=== PATIENT | female | born 1960 | race Hispanic/Latino ===

== ENCOUNTER 2017-08-29 21:50 | Emergency (ER) | payer MEDICARE, MEDICAID ==
[2017-08-29 22:12] VITALS: BP 112/72; RESP 16; TEMP 98.9
--- NOTE | 2017-08-30 00:46 | ED PDOC ---
HPI: General Adult Time Seen by Provider: 08/29/17 23:54 Chief Complaint (Nursing): Abnormal Skin Integrity Chief Complaint (Provider): Abnormal Skin Integrity History Per: Patient History/Exam Limitations: no limitations Onset/Duration Of Symptoms: Days (x1) Current Symptoms Are (Timing): Still Present Additional Complaint(s): 57 year old female presents to the emergency department complaining of yellow discharge noted today from her right breast s/p a breast reduction surgery on at [facility]. Patient states she has had one post operation evaluation and was told everything was normal, recently finishing her dose of clarithromycin. Denies fever, shortness of breath, and hemoptysis. PMD: Donnie Ribeiro Past Medical History Reviewed: Historical Data, Nursing Documentation, Vital Signs Vital Signs: Last Vital Signs Temp 98.9 F 08/29/17 22:10 Pulse 104 H 08/30/17 05:55 Resp 16 08/30/17 05:55 BP 112/72 08/29/17 22:10 Pulse Ox 99 08/30/17 05:55 - Medical History PMH: No Chronic Diseases - Surgical History Other surgeries: breast reduction 08/14/17 - Family History Family History: States: Unknown Family Hx - Home Medications Home Medications: Ambulatory Orders Medication Instructions Recorded Doxycycline Hyclate [Doryx] 100 mg PO BID #14 cap 08/30/17 Ondansetron ODT [Zofran ODT] 4 mg PO TID #10 odt 08/30/17 - Allergies Allergies/Adverse Reactions: Allergies Allergy/AdvReac Type Severity Reaction Status Date / Time codeine Allergy RASH Verified 08/29/17 22:09 Penicillins Allergy RASH Verified 08/29/17 22:09 tramadol AdvReac ANAPHYLAXIS Verified 08/29/17 22:09 Review of Systems ROS Statement: Except As Marked, All Systems Reviewed And Found Negative Constitutional: Negative for: Fever Respiratory: Negative for: Shortness of Breath, Hemoptysis Skin: Positive for: Other (yellow discharge from right breast surgical wound) Physical Exam - Reviewed Nursing Documentation Reviewed: Yes Vital Signs Reviewed: Yes - Physical Exam Appears: Positive for: No Acute Distress Head Exam: Positive for: ATRAUMATIC, NORMOCEPHALIC Skin: Positive for: Normal Color, Warm, Dry Eye Exam: Positive for: Normal appearance Cardiovascular/Chest: Positive for: Regular Rate, Rhythm, Other (left breast healing wound: minimal surrounding erythema to wound with no drainage; Right breast healing wound: minimal surrounding erythema, but yellow discharge noted. No fluctuance or induration). Negative for: Murmur Respiratory: Positive for: Normal Breath Sounds. Negative for: Accessory Muscle Use, Respiratory Distress Neurologic/Psych: Positive for: Alert, Oriented (x3) - Laboratory Results Result Diagrams: 08/30/17 00:50 08/30/17 00:50 - ECG ECG: Positive for: Interpreted By Nv ECG Rhythm: Positive for: Sinus Tachycardia. Negative for: ST/T Changes Rate: 107 O2 Sat by Pulse Oximetry: 97 (RA) Pulse Ox Interpretation: Normal Medical Decision Making Medical Decision Making: Initial Impression: post op infection Time: 00:13 Initial Plan: --Rashad discussed with Dr. Guzmán who recommended blood work and IV insertion. --VBG --CMP --CBC with differential --Vancomycin --Blood Culture --Wound Culture --Chest XR 00:30 Patient reports that her plastic surgeon is [place] of the country and advised her to follow up at the ED for further evaluation. On re-evaluation, pt. states several months ago she was seen by Dr. Way, aircraft dispatcher, who prescribed her Metoprolol for an elevated heart rate. States she stopped metoprolol on her own after the surgery as she was afraid it would interact with her Clarithromycin and she has not been on metoprolol since. Denies chest pain, SOB, hemoptysis, hx of DVT or PE, leg pain or swelling. No calf tenderness b/l; negative Chinedu's sign b/l. EKG: ST at [address]-T wave changes. Case d/w Dr. Guzmán who states pt. can be discharged with oral antibiotics. Pt. informed of results and advised to f/u with PMD and Dr. Way. 4:06 Chest XR FINDINGS: Lungs: There is a 1.7 x 1.3 cm pulmonary nodule in the right lower lobe. There is a calcified nodule in the right mid lung measuring 8 mm. Pleural space: Unremarkable. No pneumothorax. Heart: Unremarkable. No cardiomegaly. Mediastinum: Unremarkable. Bones/joints: Status post cervical fusion with plate and screws noted. There is a single fractured wire overlying the superior mediastinum. IMPRESSION: Right mid and lower lobe pulmonary nodules. Recommend comparison with prior studies if available to establish stability. No focal consolidation. 4:10 Patient was informed of Chest XR findings and advised to follow up with her PMD for further evaluation of her pulmonary nodules. Scribe Attestation: Documented by Nancy St, acting as a scribe for Edilson Lujan PA-C. Provider Scribe Attestation: All medical entries made by the Scribe were at my direction and personally dictated by me. I have reviewed the chart and agree that the record accurately reflects my personal performance of the history, physical exam, medical decision making, and the department course for this patient. I have also personally directed, reviewed, and agree with the discharge instructions and disposition. Disposition - Clinical Impression Clinical Impression: Post op infection, Cough, Pulmonary nodule - Patient ED Disposition Is Patient to be Admitted: No - Disposition Referrals: Shannan Cleveland [Outside] Disposition: Routine/Home Disposition Time: 04:17 Condition: STABLE Additional Instructions: FOLLOW UP WITH DR. DECKER (YOUR PLASTIC SURGEON) WITHOUT FAIL RETURN TO ED IMMEDIATELY IF SYMPTOMS WORSEN Prescriptions: Doxycycline Hyclate [Doryx] 100 mg PO BID #14 cap Ondansetron ODT [Zofran ODT] 4 mg PO TID #10 odt Instructions: Surgical Wound (DC), Cough, Adult (DC), Multiple Pulmonary Nodules Forms: [employer] (Hebrew) Print Language: NORTHERN IRISH
[2017-08-30 01:00] LABS: VENOUS BLOOD GAS BASE EXCESS 7.6 mmol/L (0.0-2.0); VENOUS BLOOD GAS PCO2 52 mmHg (40-60); VENOUS BLOOD GAS PO2 22 mm/Hg (30-55); VENOUS BLOOD PH 7.42 (7.32-7.43)
[2017-08-30 01:15] LABS: BASO # 0.1 K/uL (0.0-0.2); BASO % 0.7 % (0.0-2.0); EOS # 0.1 K/uL (0.0-0.7); EOS % 0.6 % (0.0-4.0); HEMOGLOBIN 11.2 g/dL (12.0-16.0); LYMPH # 1.3 K/uL (1.0-4.3); LYMPH % 10.6 % (20.0-40.0); MEAN CELL VOLUME 86.9 fl (81.0-99.0); MEAN CORPUSCULAR HGB CONC 34.6 g/dL (33.0-37.0); MEAN PLATELET VOLUME 8.6 fl (7.2-11.7); MONO # 1.1 K/uL (0.0-0.8); MONO % 8.7 % (0.0-10.0); NEUT # 9.9 K/uL (1.8-7.0); NEUT % 79.4 % (50.0-75.0); RBC 3.73 Mil/uL (3.80-5.20); RED CELL DISTRIBUTION WIDTH 13.3 % (11.5-14.5); WHITE BLOOD COUNT 12.4 K/uL (4.8-10.8)
[2017-08-30 01:21] LABS: CALCIUM 9.1 mg/dL (8.4-10.2); GFR AFRICAN-AMERICAN > 60; GFR NON-AFRICAN AMERICAN > 60
[2017-08-30 01:25] LABS: BLOOD UREA NITROGEN 13 mg/dl (7-17)
[2017-08-30 01:26] LABS: ALB/GLOB RATIO 0.9 (1.0-2.1); ALBUMIN 3.6 g/dL (3.5-5.0); ALT/SGPT 18 U/L (9-52); AST/SGOT 44 U/L (14-36)
--- NOTE | 2017-08-30 04:06 | RAD ---
EXAM: XR Chest, 2 Views CLINICAL HISTORY: 57 years old, female; Signs and symptoms; Cough; Symptoms not specified; Prior surgery; Surgery date: 1-6 months; Surgery type: Breast reduction. Pt states infection/inflammation on breasts. Rt breast pain TECHNIQUE: Frontal and lateral views of the chest. COMPARISON: No relevant prior studies available. FINDINGS: Lungs: There is a 1.7 x 1.3 cm pulmonary nodule in the right lower lobe. There is a calcified nodule in the right mid lung measuring 8 mm. Pleural space: Unremarkable. No pneumothorax. Heart: Unremarkable. No cardiomegaly. Mediastinum: Unremarkable. Bones/joints: Status post cervical fusion with plate and screws noted. There is a single fractured wire overlying the superior mediastinum. IMPRESSION: Right mid and lower lobe pulmonary nodules. Recommend comparison with prior studies if available to establish stability. No focal consolidation.
[2017-08-30 06:16] VITALS: PULSE 107; O2SAT 97
--- NOTE | 2017-08-30 14:41 | CARD ---
APPROVED REPORT EKG Measurement Heart [id number] <Conclusion> Sinus tachycardia Low voltage QRS Incomplete right bundle branch block Borderline ECG
== END 2017-08-30 04:20 | disposition home or self-care (01) ==
LOC: H.ER 21:50
DX: T81.4XXA Infection following a procedure, initial encounter (principal); Z98.890 Other specified postprocedural states; R91.1 Solitary pulmonary nodule; Z88.0 Allergy status to penicillin

== ENCOUNTER 2018-02-28 15:46 | Emergency (ER) | payer MEDICAID, MEDICARE ==
[2018-02-28 16:07] VITALS: RESP 18
[2018-02-28] MEDS ORDERED: Morphine 4 MG/ML VIAL IV STA (16:57)
[2018-02-28] MEDS ORDERED: Morphine 4 MG/ML VIAL IM STA (17:01)
[2018-02-28] MEDS ORDERED: Morphine 4 MG/ML VIAL ONE (17:03)
--- NOTE | 2018-02-28 17:26 | ED PDOC ---
Upper Extremity Pain/Injury Time Seen by Provider: 02/28/18 16:28 Chief Complaint (Nursing): Upper Extremity Problem/Injury Chief Complaint (Provider): Upper Extremity Problem/Injury History Per: Patient History/Exam Limitations: no limitations Onset/Duration Of Symptoms: Days (x1) Current Symptoms Are (Timing): Still Present Additional Complaint(s): Noemi Gibson is a 58 year old female with no past medical history who is presenting to the ED for evaluation of left shoulder pain onset last night. Patient states that she tripped and fell hitting her left shoulder in the process. She reports that she cant move her arm and denies any numbness, tingling, head injury, or weakness. Patient offers no other medical complaints at this time. PMD: none provided Past Medical History Reviewed: Historical Data, Nursing Documentation, Vital Signs Vital Signs: Last Vital Signs Temp 97.8 F 02/28/18 16:05 Pulse 86 02/28/18 16:05 Resp 18 02/28/18 16:05 BP 164/67 H 02/28/18 16:05 Pulse Ox 100 02/28/18 16:05 - Medical History PMH: No Chronic Diseases - Surgical History Surgical History: No Surg Hx - Family History Family History: States: Unknown Family Hx - Social History Current smoker - smoking cessation education provided: No Alcohol: None Drugs: Denies - Home Medications Home Medications: Ambulatory Orders Medication Instructions Recorded Doxycycline Hyclate [Doryx] 100 mg PO BID #14 cap 08/30/17 Ondansetron ODT [Zofran ODT] 4 mg PO TID #10 odt 08/30/17 - Allergies Allergies/Adverse Reactions: Allergies Allergy/AdvReac Type Severity Reaction Status Date / Time acetaminophen [From Percocet] Allergy RASH Verified 02/28/18 16:02 codeine Allergy RASH Verified 08/29/17 22:09 gabapentin Allergy RASH Verified 02/28/18 16:04 oxycodone [From Percocet] Allergy RASH Verified 02/28/18 16:02 Penicillins Allergy RASH Verified 08/29/17 22:09 lidocaine AdvReac ANAPHYLAXIS Verified 02/28/18 16:02 tramadol AdvReac ANAPHYLAXIS Verified 08/29/17 22:09 Review of Systems ROS Statement: Except As Marked, All Systems Reviewed And Found Negative Musculoskeletal: Positive for: Shoulder Pain Neurological: Negative for: Weakness, Numbness Physical Exam - Reviewed Nursing Documentation Reviewed: Yes Vital Signs Reviewed: Yes - Physical Exam Appears: Positive for: Non-toxic, No Acute Distress Head Exam: Positive for: ATRAUMATIC, NORMAL INSPECTION, NORMOCEPHALIC Skin: Positive for: Normal Color Neck: Positive for: Normal, Painless ROM, Supple Back: Positive for: Normal Inspection Extremity: Positive for: Normal ROM (decreased ROM secondary to pain), Tenderness (tenderness of the clavicle and anterior left scapula ). Negative for: Deformity (no bony deformity), Swelling, Other (no echymosis or erythema ) Neurologic/Psych: Positive for: Alert, Oriented. Negative for: Motor/Sensory Deficits - ECG O2 Sat by Pulse Oximetry: 100 (RA) Pulse Ox Interpretation: Normal Medical Decision Making Medical Decision Making: Time: 16:44 Plan: --X-Ray Left Shoulder Morphine 4mg IM for pain. Pt. has taken in the past without issues. Scribe Attestation: Documented by Asia Zarate, acting as a scribe for Melissa Coulter PA-C. Provider Scribe Attestation: All medical record entries made by the Scribe were at my direction and personally dictated by me. I have reviewed the chart and agree that the record accurately reflects my personal performance of the history, physical exam, medical decision making, and the department course for this patient. I have also personally directed, reviewed, and agree with the discharge instructions and disposition. Disposition - Clinical Impression Clinical Impression: Shoulder injury - Patient ED Disposition Is Patient to be Admitted: No Counseled Patient/Family Regarding: Diagnosis, Need For Followup - Disposition Disposition: Routine/Home Disposition Time: 18:09 Condition: GOOD Instructions: Shoulder Pain (DC) Forms: [employer] (Brazilian)
--- NOTE | 2018-02-28 17:58 | RAD ---
Date of service: 02/28/2018 PROCEDURE: Radiographs of the Left Shoulder HISTORY: pain, fall COMPARISON: No prior. FINDINGS: BONES: Normal. No fracture. JOINTS: Normal. Glenohumeral and acromioclavicular joints preserved. No osteoarthritis. SOFT TISSUES: Normal. OTHER FINDINGS: None. IMPRESSION: Normal radiographs of the left shoulder.
[2018-02-28 18:16] VITALS: BP 122/81; PULSE 76; TEMP 98; O2SAT 99
== END 2018-02-28 18:15 | disposition home or self-care (01) ==
LOC: H.ER 15:46
DX: S49.92XA Unspecified injury of left shoulder and upper arm, initial encounter (principal); Z88.5 Allergy status to narcotic agent; W01.10XA Fall on same level from slipping, tripping and stumbling with subsequent striking against unspecified object, initial encounter
CPT/HCPCS: 73030; 96372; 99283; J2270

== ENCOUNTER 2018-06-17 16:32 | Inpatient (IN) | payer MEDICARE, MEDICAID ==
[2018-06-17] MEDS ORDERED: Albuterol-Ipratrop 3 mg / 0.5 (3 ml) UD ONE ×2 (17:13→19:10)
[2018-06-17] MEDS ORDERED: Albuterol-Ipratrop 3 mg / 0.5 (3 ml) UD INH STA ×3 (17:34→18:59)
--- NOTE | 2018-06-17 17:36 | ED PDOC ---
HPI: Asthma Time Seen by Provider: 06/17/18 17:12 Chief Complaint (Nursing): Cough, Cold, Congestion Chief Complaint (Provider): Shortness of Breath, Cough History Per: Patient History/Exam Limitations: no limitations Onset/Duration Of Symptoms: Hrs (since 0130 this morning) Current Symptoms Are (Timing): Still Present Additional Complaint(s): 58 year old female with pmhx of asthma presents to the ED for evaluation of shortness of breath unrelieved by at home nebulizer treatment associated with cough productive of yellow sputum and intermittent hot flashes / chills since 0130 this morning. Patient notes her last asthma exacerbation was one year ago. Otherwise, denies fever and chest pain. PMD: Donnie Ribeiro Past Medical History Reviewed: Historical Data, Nursing Documentation, Vital Signs Vital Signs: Last Vital Signs Temp 98.6 F 06/17/18 16:55 Pulse 99 H 06/17/18 16:55 Resp 16 06/17/18 16:55 BP 114/60 06/17/18 16:55 Pulse Ox 95 06/17/18 16:55 - Medical History PMH: Asthma - Surgical History Surgical History: No Surg Hx - Family History Family History: States: Unknown Family Hx - Social History Current smoker - smoking cessation education provided: No Alcohol: None Drugs: Denies - Home Medications Home Medications: Ambulatory Orders Medication Instructions Recorded Doxycycline Hyclate [Doryx] 100 mg PO BID #14 cap 08/30/17 Ondansetron ODT [Zofran ODT] 4 mg PO TID #10 odt 08/30/17 - Allergies Allergies/Adverse Reactions: Allergies Allergy/AdvReac Type Severity Reaction Status Date / Time acetaminophen [From Percocet] Allergy RASH Verified 06/17/18 16:55 codeine Allergy RASH Verified 06/17/18 16:55 gabapentin Allergy RASH Verified 06/17/18 16:55 oxycodone [From Percocet] Allergy RASH Verified 06/17/18 16:55 Penicillins Allergy RASH Verified 06/17/18 16:55 lidocaine AdvReac ANAPHYLAXIS Verified 06/17/18 16:55 tramadol AdvReac ANAPHYLAXIS Verified 06/17/18 16:55 Review of Systems ROS Statement: Except As Marked, All Systems Reviewed And Found Negative Constitutional: Positive for: Chills (and hot flashes intermittently). Negative for: Fever Cardiovascular: Negative for: Chest Pain Respiratory: Positive for: Cough, Shortness of Breath, Sputum (yellow) Physical Exam - Reviewed Nursing Documentation Reviewed: Yes Vital Signs Reviewed: Yes - Physical Exam Appears: Positive for: No Acute Distress Head Exam: Positive for: ATRAUMATIC, NORMOCEPHALIC Skin: Positive for: Normal Color, Warm, Dry. Negative for: Rash Eye Exam: Positive for: Normal appearance ENT: Positive for: Normal ENT Inspection Neck: Positive for: Normal, Painless ROM, Supple Cardiovascular/Chest: Positive for: Tachycardia (but regular rhythm) Respiratory: Positive for: Wheezing (bilateral), Other (speaking full sentences). Negative for: Respiratory Distress Gastrointestinal/Abdominal: Positive for: Normal Exam, Soft. Negative for: Tenderness Back: Positive for: Normal Inspection Extremity: Positive for: Normal ROM (all extremities) Neurological/Psych: Positive for: Awake, Alert, Oriented (x3). Negative for: Motor/Sensory Deficits - Laboratory Results Result Diagrams: 06/17/18 17:58 06/17/18 17:58 - ECG O2 Sat by Pulse Oximetry: 95 (RA) Pulse Ox Interpretation: Normal - Radiology X-Ray: Interpreted by Tn X-Ray Interpretation: No Acute Disease, Other (Pulmonary nodules (unchanged from 08/30/17)) - Progress Re-evaluation Time: 18:50 Condition: Unchanged Medical Decision Making Medical Decision Making: Time: 1732 Initial Impression: asthma exacerbation Initial Plan: --EKG --CMP --CBC with differential --CXR --Duoneb 3ml INH x2 --SOLU-medrol 125mg IVP --Blood culture --Peak flow pre/post x2 --Reevaluation 19:[address] Emanuel, admit. Scribe Attestation: Documented by Nancy St, acting as a scribe for Aissatou Siegel MD. Provider Scribe Attestation: All medical record entries made by the Scribe were at my direction and personally dictated by me. I have reviewed the chart and agree that the record accurately reflects my personal performance of the history, physical exam, medical decision making, and the department course for this patient. I have also personally directed, reviewed, and agree with the discharge instructions and disposition. Disposition - Clinical Impression Clinical Impression: Asthma exacerbation - Patient ED Disposition Is Patient to be Admitted: Yes - Disposition Disposition Time: 19:00 Condition: STABLE Forms: [employer] ([place] Rican) - Pt Status Changed To: Hospital Disposition Of: Inpatient - Admit Certification Admit to Inpatient:: After my assessment, the patient will require hospitalization for at least two midnights. This is because of the severity of symptoms shown, intensity of services needed, and/or the medical risk in this patient being treated as an outpatient. - POA Present On Arrival: None
[2018-06-17 18:16] LABS: BASO % 0.2 % (0.0-2.0); EOS % 0.5 % (0.0-4.0); HEMOGLOBIN 14.8 g/dL (12.0-16.0); LYMPH # 1.1 K/uL (1.0-4.3); LYMPH % 18.6 % (20.0-40.0); MEAN CELL VOLUME 90.8 fl (81.0-99.0); MEAN CORPUSCULAR HEMOGLOBIN 29.9 pg (27.0-31.0); MEAN CORPUSCULAR HGB CONC 32.9 g/dL (33.0-37.0); MEAN PLATELET VOLUME 8.3 fl (7.2-11.7); MONO # 0.8 K/uL (0.0-0.8); MONO % 13.9 % (0.0-10.0); NEUT # 3.8 K/uL (1.8-7.0); NEUT % 66.8 % (50.0-75.0); NRBC % 0.3 % (0.0-0.0); RBC 4.94 Mil/uL (3.80-5.20); RED CELL DISTRIBUTION WIDTH 13.8 % (11.5-14.5); WHITE BLOOD COUNT 5.7 K/uL (4.8-10.8)
[2018-06-17 18:24] LABS: ALB/GLOB RATIO 1.2 (1.0-2.1); ALBUMIN 4.1 g/dL (3.5-5.0); ALT/SGPT 26 U/L (9-52); AST/SGOT 30 U/L (14-36); BLOOD UREA NITROGEN 13 mg/dl (7-17); CALCIUM 9.5 mg/dL (8.4-10.2); GFR NON-AFRICAN AMERICAN > 60
[2018-06-17] MEDS ORDERED: Azithromycin 500 MG in Sodium Chloride 0.9% 250 ML IV STA (18:57)
[2018-06-17] MEDS ORDERED: Azithromycin 500 MG IV IVPB ONE (19:03)
[2018-06-18 06:13] LABS: HEMOGLOBIN 13.7 g/dL (12.0-16.0); MEAN CORPUSCULAR HEMOGLOBIN 29.8 pg (27.0-31.0); MEAN CORPUSCULAR HGB CONC 33.9 g/dL (33.0-37.0); RBC 4.61 Mil/uL (3.80-5.20); RED CELL DISTRIBUTION WIDTH 13.4 % (11.5-14.5); WHITE BLOOD COUNT 5.4 K/uL (4.8-10.8)
[2018-06-18 06:18] LABS: ALB/GLOB RATIO 1.2 (1.0-2.1); ALBUMIN 4.2 g/dL (3.5-5.0); ALT/SGPT 24 U/L (9-52); AST/SGOT 26 U/L (14-36); BLOOD UREA NITROGEN 15 mg/dl (7-17); CALCIUM 9.7 mg/dL (8.4-10.2); GFR NON-AFRICAN AMERICAN > 60; HDL CHOLESTEROL 80 MG/DL (30-70)
[2018-06-18 06:29] LABS: LDL CHOLESTEROL 78 mg/dL (0-129)
[2018-06-18] MEDS: Albuterol-Ipratrop 3 mg / 0.5 (3 ml) UD INH SCH ×6 (08:17→23:57)
[2018-06-18] MEDS: Azithromycin 500 MG in Sodium Chloride 0.9% 250 ML IVPB SCH (08:38)
[2018-06-18] MEDS: Cholecalciferol 1,000 INTLU TAB PO SCH (08:38)
[2018-06-18] MEDS ORDERED: DICLOFENAC SODIUM 1% TOP SCH (09:00)
[2018-06-18] MEDS ORDERED: Promethazine DM 6.25 mg-15 mg/5 ml Syrup PO PRN (11:09)
--- NOTE | 2018-06-18 11:15 | CARD ---
APPROVED REPORT Date of service: 06/17/2018 EKG Measurement Heart [id number] CO 140P [id number] <Conclusion> Sinus tachycardia Incomplete right bundle branch block T wave abnormality, consider lateral ischemia Abnormal ECG
--- NOTE | 2018-06-18 11:30 | RAD ---
Date of service: 06/17/2018 HISTORY: SOB COMPARISON: 08/30/2017. FINDINGS: LUNGS: Calcified granulomas, pulmonary nodules right lung. PLEURA: No significant pleural effusion identified, no pneumothorax apparent. CARDIOVASCULAR: No atherosclerotic calcification present Normal. OSSEOUS STRUCTURES: No significant abnormalities. Stable findings related to ACDF. VISUALIZED UPPER ABDOMEN: Normal. OTHER FINDINGS: None. IMPRESSION: No active disease. No significant interval change compared to the prior examination(s).
[2018-06-18 11:35] LABS: SQUAMOUS EPITHIAL < 1 /hpf (0-5); URINE BACTERIA RARE (<OCC); URINE BILIRUBIN NEGATIVE (NEGATIVE); URINE BLOOD NEGATIVE (NEGATIVE); URINE CLARITY CLEAR (Clear); URINE COLOR YELLOW (YELLOW); URINE GLUCOSE (UA) NEG (NEGATIVE); URINE HYALINE CAST 0-2 /hpf (0-2); URINE LEUKOCYTE ESTERASE NEG Leu/uL (Negative); URINE PROTEIN NEGATIVE (NEGATIVE); URINE UROBILINOGEN 0.2-1.0 mg/dL (0.2-1.0)
[2018-06-18] MEDS: Pantoprazole 40 mg EC Tab PO SCH ×2 (12:09→12:16)
[2018-06-18] MEDS: MethylPREDNISolone 40 mg Vial IVP SCH ×3 (12:10→21:16)
--- NOTE | 2018-06-18 14:57 | CP.PCM.HP ---
History of Present Illness - History of Present Illness History of Present Illness: CC: SOB. 58 y/o F with Hx Asthma with 1st onset 1 yr ago, HTN, Breast reduction, Pt came to [facility] [place] on 06/17/18 to be evaluated for acute onset of Asthma attack, that began at 3 AM DOA, Pt was advised by her PMD to come to hospital for further evaluation, SOB associated to cough, intermittent with small amount of thick yellowish phlegms, wheezing, nasal congestion, Pt using Nebulizer Tx, Ventolin with some relief. Worsening symptoms: Ribs pain with coughing. Aggravated factor: Walking/exercise. Pt denied: Fever, chills, CP, palpitations, syncope, dizziness, n/v/d, abdominal pain, sick contact, recent travel out of [facility] CXR: No active disease. EKG: Sinus tachycardia, incomplete R BBB, lateral ischenia. Present on Admission - Present on Admission Any Indicators Present on Admission: No Review of Systems - Constitutional Constitutional: Other (negative) - EENT Ears: Decreased Hearing (R ear) Nose/Mouth/Throat: Nasal Congestion - Cardiovascular Cardiovascular: Rapid Heart Rate - Respiratory Respiratory: Cough, Dyspnea, Dyspnea on Exertion, Wheezing, Pain with Coughing - Gastrointestinal Gastrointestinal: Other (negative) - Genitourinary Genitourinary: Other (negative) - Musculoskeletal Musculoskeletal: Other (negative) - Integumentary Integumentary: Other (Ribs pain when coughing) - Neurological Neurological: Other (neg) - Psychiatric Psychiatric: Other (negative) - Endocrine Endocrine: Other (negative) - Hematologic/Lymphatic Hematologic: Other (negtaive) Past Patient History - Past Medical History & Family History Past Medical History?: Yes Pertinent Family History: Unknown - Past Social History Smoking Status: Never Smoked Alcohol: None Drugs: Denies Home Situation {Lives}: With Family - CARDIAC Hx Cardiac Disorders: Yes Hx Hypertension: Yes Other/Comment: "elevated heart rate" - PULMONARY Hx Respiratory Disorders: Yes (asthma) Hx Asthma: Yes - NEUROLOGICAL Hx Neurological Disorder: No - HEENT Hx HEENT Problems: No - RENAL Hx Chronic Kidney Disease: No - ENDOCRINE/METABOLIC Hx Endocrine Disorders: No - HEMATOLOGICAL/ONCOLOGICAL Hx Blood Disorders: No - INTEGUMENTARY Hx Dermatological Problems: No - MUSCULOSKELETAL/RHEUMATOLOGICAL Hx Musculoskeletal Disorders: No Hx Falls: No - GASTROINTESTINAL Hx Gastrointestinal Disorders: No - GENITOURINARY/GYNECOLOGICAL Hx Genitourinary Disorders: No - PSYCHIATRIC Hx Psychophysiologic Disorder: No Hx Substance Use: No - SURGICAL HISTORY Hx Surgeries: Yes Other/Comment: breast reduction - ANESTHESIA Hx Anesthesia: Yes Hx Anesthesia Reactions: No Hx Malignant Hyperthermia: No Has any member of the family had a problem w/ anesthesia?: No Meds Allergies/Adverse Reactions: Allergies Allergy/AdvReac Type Severity Reaction Status Date / Time acetaminophen [From Percocet] Allergy RASH Verified 06/17/18 16:55 codeine Allergy RASH Verified 06/17/18 16:55 gabapentin Allergy RASH Verified 06/17/18 16:55 oxycodone [From Percocet] Allergy RASH Verified 06/17/18 16:55 Penicillins Allergy RASH Verified 06/17/18 16:55 lidocaine AdvReac ANAPHYLAXIS Verified 06/17/18 16:55 tramadol AdvReac ANAPHYLAXIS Verified 06/17/18 16:55 Physical Exam - Constitutional Appears: No Acute Distress - Head Exam Head Exam: NORMAL INSPECTION - Eye Exam Eye Exam: PERRL - ENT Exam ENT Exam: Normal Exam Additional comments: Hard of hearing on R, Nasal congestion - Neck Exam Neck exam: Positive for: Normal Inspection - Respiratory Exam Respiratory Exam: Wheezes - Cardiovascular Exam Cardiovascular Exam: REGULAR RHYTHM - GI/Abdominal Exam GI & Abdominal Exam: Normal Bowel Sounds, Soft - Extremities Exam Extremities exam: Positive for: normal inspection - Back Exam Back exam: NORMAL INSPECTION - Neurological Exam Neurological exam: Alert, Oriented x3 Additional comments: No motor/sensory deficit. - Psychiatric Exam Psychiatric exam: Normal Mood - Skin Skin Exam: Warm Results - Vital Signs Recent Vital Signs: Last Vital Signs Temp 98.0 F 06/18/18 12:00 Pulse 73 06/18/18 12:00 Resp 18 06/18/18 12:00 BP 103/65 06/18/18 12:00 Pulse Ox 93 L 06/18/18 12:00 reviewed Audra - Labs Result Diagrams: 06/18/18 05:50 06/18/18 05:50 Labs: Laboratory Results - last 24 hr 06/17/18 06/17/18 06/18/18 17:58 17:58 05:50 WBC 5.7 D 5.4 RBC 4.94 4.61 Hgb 14.8 D 13.7 Hct 44.9 40.5 MCV 90.8 D 88.0 D MCH 29.9 29.8 MCHC 32.9 L 33.9 RDW 13.8 13.4 Plt Count 147 D 235 MPV 8.3 Neut % (Auto) 66.8 Lymph % (Auto) 18.6 L Oliver % (Auto) 13.9 H Eos % (Auto) 0.5 Baso % (Auto) 0.2 Neut # (Auto) 3.8 Lymph # (Auto) 1.1 Oliver # (Auto) 0.8 Eos # (Auto) 0.0 Baso # (Auto) 0.0 Sodium 136 Potassium 3.8 Chloride 101 Carbon Dioxide 24 Anion Gap 15 BUN 13 Creatinine 0.8 Est GFR ( Amer) > 60 Est GFR (Non-Af Amer) > 60 Random Glucose 104 Calcium 9.5 Total Bilirubin 0.6 AST 30 ALT 26 Alkaline Phosphatase 74 Total Protein 7.5 Albumin 4.1 Globulin 3.4 Albumin/Globulin Ratio 1.2 Triglycerides Cholesterol LDL Cholesterol Direct HDL Cholesterol Thyroxine (T4) TSH 3rd Generation Urine Color Urine Clarity Urine pH Ur Specific [place] Urine Protein Urine Glucose (UA) Urine Ketones Urine Blood Urine Nitrate Urine Bilirubin Urine Urobilinogen Ur Leukocyte Esterase Urine RBC (Auto) Urine Microscopic WBC Ur Squamous Epith Cells Urine Bacteria Hyaline Casts 06/18/18 06/18/18 05:50 11:16 WBC RBC Hgb Hct MCV MCH MCHC RDW Plt Count MPV Neut % (Auto) Lymph % (Auto) Oliver % (Auto) Eos % (Auto) Baso % (Auto) Neut # (Auto) Lymph # (Auto) Oliver # (Auto) Eos # (Auto) Baso # (Auto) Sodium 139 Potassium 4.2 Chloride 101 Carbon Dioxide 28 Anion Gap 14 BUN 15 Creatinine 0.7 Est GFR ( Amer) > 60 Est GFR (Non-Af Amer) > 60 Random Glucose 144 H Calcium 9.7 Total Bilirubin 0.3 AST 26 ALT 24 Alkaline Phosphatase 74 Total Protein 7.8 Albumin 4.2 Globulin 3.6 Albumin/Globulin Ratio 1.2 Triglycerides 62 Cholesterol 196 LDL Cholesterol Direct 78 HDL Cholesterol 80 H Thyroxine (T4) 7.00 TSH 3rd Generation 0.18 L Urine Color Yellow Urine Clarity Clear Urine pH 5.0 Ur Specific [place] 1.020 Urine Protein Negative Urine Glucose (UA) Neg Urine Ketones Negative Urine Blood Negative Urine Nitrate Negative Urine Bilirubin Negative Urine Urobilinogen 0.2-1.0 Ur Leukocyte Esterase Neg Urine RBC (Auto) < 1 Urine Microscopic WBC 3 Ur Squamous Epith Cells < 1 Urine Bacteria Rare Hyaline Casts 0-2 reviewed J.P. - EKG Data EKG comments: reviewed J.P. - Imaging and Cardiology Chest x-ray Status: Report reviewed by me (Audra) Assessment & Plan (1) Asthma exacerbation Status: Acute Priority: High (2) HTN (hypertension) Status: Chronic Priority: Medium - Assessment and Plan (Free Text) Plan: Pt on O2 NC, f/u Echo, Zithromax, Duoneb, Solu-Medrol, Mucinex DM, Mucomyst and rest of Tx. Cardiology consult. - Date & Time Date: 06/18/18 Time: 13:20
[2018-06-18] MEDS: guaiFENesin-DM 600-30 mg ER Tab PO SCH (17:19)
[2018-06-18] MEDS ORDERED: Acetylcysteine 10% 4 ML IH SCH (20:00)
--- NOTE | 2018-06-18 20:28 | CARD ---
APPROVED REPORT Date of service: 06/18/2018 EXAM: Two-dimensional and M-mode echocardiogram with Doppler and color Doppler. Other Information Quality : FairRhythm : NSR Technically limited study due to Recent Breast surgery. INDICATION Dyspnea Asthma 2D DIMENSIONS IVSd1.26 (0.7-1.1cm)LVDd3.73 (3.9-5.9cm) LVOT Diameter1.84 (1.8-2.4cm)PWd1.04 (0.7-1.1cm) IVSs1.71 (0.8-1.2cm)LVDs1.56 (2.5-4.0cm) FS (%) 58.2 %PWs1.30 (0.8-1.2cm) M-Mode DIMENSIONS Left Atrium (MM)3.45 (2.5-4.0cm)IVSd1.16 (0.7-1.1cm) Aortic Root2.84 (2.2-3.7cm)LVDd4.36 (4.0-5.6cm) Aortic Cusp Exc.1.85 (1.5-2.0cm)PWd1.38 (0.7-1.1cm) IVSs1.74 cmFS (%) 53 % LVDs2.07 (2.0-3.8cm)PWs1.60 cm Aortic Valve AoV Peak Vmpoxfgz852.7cm/sAoV VTI27.6cmAO Peak GR.8mmHg LVOT Peak Badaxsje674.3cm/sLVOT VTI20.43cmAO Mean GR.4mmHg MARJAN (VMAX)0.35gz2SGV (VTI)1.03cm2 Mitral Valve MV E Idguydbk35.9cm/sMV DECEL [id number] A Bhnslyln52.5cm/s MV ZYB40ecB/A ratio0.9MVA (PHT)2.35cm2 TDI E/Lateral E'0.0E/Medial E'0.0 Tricuspid Valve TR Peak Ncdxgsht663jg/sRAP SEXCZZBV85dzJkYJ Peak Gr.21mmHg [id number] LEFT VENTRICLE The left ventricle is normal size. There is normal left ventricular wall thickness. The left ventricular systolic function is normal. The estimated ejection fraction is 55-60% No regional wall motion abnormalities noted.. Transmitral Doppler flow pattern is Grade I-abnormal relaxation pattern. No left ventricle thrombus noted on this study. There is no ventricular septal defect visualized. There is no left ventricular aneurysm. There is no mass noted in the left ventricle. RIGHT VENTRICLE The right ventricle is normal size. There is normal right ventricular wall thickness. The right ventricular systolic function is normal. ATRIA The left atrium size is normal. The right atrium size is normal. The interatrial septum is intact with no evidence for an atrial septal defect. AORTIC VALVE The aortic valve is normal in structure. No aortic regurgitation is present. There is no aortic valvular stenosis. There is no aortic valvular vegetation. MITRAL VALVE The mitral valve is normal in structure. There is no evidence of mitral valve prolapse. There is no mitral valve stenosis. There is no mitral valve regurgitation noted. TRICUSPID VALVE The tricuspid valve is normal in structure. There is mild tricuspid valve regurgitation noted. RVSP is calculated at 26 mm Hg. There is no tricuspid valve prolapse or vegetation. There is no tricuspid valve stenosis. PULMONIC VALVE The pulmonary valve is normal in structure. There is no pulmonic valvular regurgitation. There is no pulmonic valvular stenosis. GREAT VESSELS The aortic root is normal in size. The ascending aorta is normal in size. The pulmonary artery is normal. The IVC is normal in size and collapses >50% with inspiration. PERICARDIAL EFFUSION There is no pericardial effusion. There is no pleural effusion. <Conclusion> Technically difficult study. The estimated ejection fraction is 55-60% Transmitral Doppler flow pattern is Grade I-abnormal relaxation pattern. The left atrium size is normal. There is mild tricuspid valve regurgitation noted. RVSP is calculated at 26 mm Hg.
[2018-06-19] MEDS: MethylPREDNISolone 40 mg Vial IVP SCH ×4 (03:58→21:42)
[2018-06-19] MEDS: Albuterol-Ipratrop 3 mg / 0.5 (3 ml) UD INH SCH ×5 (08:20→23:37)
[2018-06-19] MEDS: Pantoprazole 40 mg EC Tab PO SCH (10:02)
[2018-06-19] MEDS: guaiFENesin-DM 600-30 mg ER Tab PO SCH ×2 (10:02→17:45)
[2018-06-19] MEDS: Cholecalciferol 1,000 INTLU TAB PO SCH (10:12)
[2018-06-19] MEDS: diltiaZEM 120 mg/24 Hours CD Cap PO SCH (10:13)
[2018-06-19] MEDS: Azithromycin 500 MG in Sodium Chloride 0.9% 250 ML IVPB SCH (10:14)
--- NOTE | 2018-06-19 11:03 | CP.PCM.CON ---
History of Present Illness - History of Present Illness History of Present Illness: Vinayak Pressley, PGY-1, Cardiology Consult Note for Dr. Barakat 58 year old female with past medical history of asthma and congenital cardiac anomaly presents with asthma exacerbation that started at 3 AM on Friday morning. Patient reports that her asthma has generally been well controlled and doesn't have daily or nightly exacerbations. Patient reports shortness of breath, sore throat, minor chest tightness with breathing, and cough with white sputum. Patient denies chest pain, nausea, vomiting, diaphoresis, left arm pain, jaw pain. PMH: as mentioned above PSH: 4 spinal cord surgeries, right knee surgery, left hand surgery, 2 C- sections, 2 open heart surgeries at 7 years old and 18 years old (first surgery was for pulmonary stenosis, second was for unknown reason) FMHx: denies SHx: denies smoking and recreational drug use. reports occassional alcohol use Allergies: tylenol, codeine, gabapentin, oxycodone, penicillin, tramadol PMD: Dr. Hurtado Cardio; Dr. Knott Patient has had 9 catheterizations in the past. Last catheterization was a few years ago as clearance for spinal surgery and catheterization was clean as r eported by patient. Review of Systems - Review of Systems Review of Systems: except as mentioned in HPI Past Patient History - Past Medical History & Family History Past Medical History?: Yes - Past Social History Smoking Status: Never Smoked Alcohol: None Drugs: Denies Home Situation {Lives}: With Family - CARDIAC Hx Cardiac Disorders: Yes Hx Hypertension: Yes Other/Comment: "elevated heart rate" - PULMONARY Hx Respiratory Disorders: Yes (asthma) Hx Asthma: Yes - NEUROLOGICAL Hx Neurological Disorder: No - HEENT Hx HEENT Problems: No - RENAL Hx Chronic Kidney Disease: No - ENDOCRINE/METABOLIC Hx Endocrine Disorders: No - HEMATOLOGICAL/ONCOLOGICAL Hx Blood Disorders: No - INTEGUMENTARY Hx Dermatological Problems: No - MUSCULOSKELETAL/RHEUMATOLOGICAL Hx Musculoskeletal Disorders: No Hx Falls: No - GASTROINTESTINAL Hx Gastrointestinal Disorders: No - GENITOURINARY/GYNECOLOGICAL Hx Genitourinary Disorders: No - PSYCHIATRIC Hx Psychophysiologic Disorder: No Hx Substance Use: No - SURGICAL HISTORY Hx Surgeries: Yes Other/Comment: breast reduction - ANESTHESIA Hx Anesthesia: Yes Hx Anesthesia Reactions: No Hx Malignant Hyperthermia: No Has any member of the family had a problem w/ anesthesia?: No Meds Allergies/Adverse Reactions: Allergies Allergy/AdvReac Type Severity Reaction Status Date / Time acetaminophen [From Percocet] Allergy RASH Verified 06/17/18 16:55 codeine Allergy RASH Verified 06/17/18 16:55 gabapentin Allergy RASH Verified 06/17/18 16:55 oxycodone [From Percocet] Allergy RASH Verified 06/17/18 16:55 Penicillins Allergy RASH Verified 06/17/18 16:55 lidocaine AdvReac ANAPHYLAXIS Verified 06/17/18 16:55 tramadol AdvReac ANAPHYLAXIS Verified 06/17/18 16:55 - Medications Medications: Current Medications Albuterol/Ipratropium (Duoneb 3 Mg/0.5 Mg (3 Ml) Ud) 3 ml INH RQ4 [facility] Last Admin: 06/19/18 08:20 Dose: 3 ml Baclofen (Lioresal) 10 mg PO HS [facility] Last Admin: 06/18/18 21:16 Dose: 10 mg Cholecalciferol (Vitamin D) 1,000 intlu PO DAILY [facility] Last Admin: 06/19/18 10:12 Dose: 1,000 intlu Cyanocobalamin (Vitamin B12 1000 Mcg Tab) 1,000 mcg PO DAILY [facility] Last Admin: 06/19/18 10:12 Dose: 1,000 mcg Diltiazem HCl (Cardizem Cd) 120 mg PO DAILY [facility] Last Admin: 06/19/18 10:13 Dose: 120 mg Guaifenesin/Dextromethorphan (Mucinex-Dm 600-30 Mg) 1 tab PO BID [facility] Last Admin: 06/19/18 10:02 Dose: 1 tab Home Med (Diclofenac Sodium [Voltaren]) 1 % TOP BID [facility] Azithromycin 500 mg/ Sodium (Chloride) 250 mls @ 250 mls/hr IVPB DAILY [facility]; Protocol Last Admin: 06/19/18 10:14 Dose: 250 mls/hr Methylprednisolone (Solu-Medrol) 40 mg IVP Q6H [facility] Last Admin: 06/19/18 10:02 Dose: 40 mg Pantoprazole Sodium (Protonix Ec Tab) 40 mg PO DAILY [facility] Last Admin: 06/19/18 10:02 Dose: Not Given Promethazine HCl/Dextromethorphan (Phenergan Dm Syrup) 5 ml PO Q6 PRN PRN Reason: Cough Last Admin: 06/18/18 12:10 Dose: 5 ml Tizanidine HCl (Zanaflex) 4 mg PO DAILY [facility] Last Admin: 06/19/18 10:14 Dose: 4 mg Physical Exam - Constitutional Appears: Well, Non-toxic, No Acute Distress - Head Exam Head Exam: ATRAUMATIC, NORMAL INSPECTION, NORMOCEPHALIC - Eye Exam Eye Exam: EOMI, PERRL - ENT Exam ENT Exam: Mucous Membranes Moist - Respiratory Exam Respiratory Exam: Wheezes - Cardiovascular Exam Cardiovascular Exam: Diastolic murmur, REGULAR RHYTHM, RRR, +S1, +S2 - GI/Abdominal Exam GI & Abdominal Exam: Normal Bowel Sounds, Soft. absent: Tenderness - Extremities Exam Extremities exam: Positive for: full ROM, normal inspection. Negative for: pedal edema - Neurological Exam Neurological exam: Alert, CN II-XII Intact, Oriented x3 - Psychiatric Exam Psychiatric exam: Normal Affect, Normal Mood - Skin Skin Exam: Dry, Intact Results - Vital Signs Recent Vital Signs: Last Vital Signs Temp 98.6 F 06/19/18 08:28 Pulse 96 H 06/19/18 10:13 Resp 20 06/19/18 08:28 BP 125/80 06/19/18 10:13 Pulse Ox 94 L 06/19/18 08:28 - Labs Result Diagrams: 06/18/18 05:50 06/18/18 05:50 Labs: Laboratory Results - last 24 hr 06/18/18 11:16 Urine Color Yellow Urine Clarity Clear Urine pH 5.0 Ur Specific [place] 1.020 Urine Protein Negative Urine Glucose (UA) Neg Urine Ketones Negative Urine Blood Negative Urine Nitrate Negative Urine Bilirubin Negative Urine Urobilinogen 0.2-1.0 Ur Leukocyte Esterase Neg Urine RBC (Auto) < 1 Urine Microscopic WBC 3 Ur Squamous Epith Cells < 1 Urine Bacteria Rare Hyaline Casts 0-2 Assessment & Plan (1) Cardiac anomaly Assessment and Plan: Current symptoms unlikely due to cardiac cause. EKG: sinus tachycarda with HR: 107 Echocardiogram: LVEF 55-60%, RVSP of 26, Mild TR, grade I pseudonormal relaxation Continue with cardizem Status: Acute (2) Asthma exacerbation Assessment and Plan: CXR shows no effusions Symptoms likely 2/2 to asthma exacerbation Continue with methylprednisone, duonebs, and azithromycin. Status: Acute Priority: High - Date & Time Date: 06/19/18 Time: 11:04
--- NOTE | 2018-06-19 12:48 | PQF ---
PROVIDER RESPONSE TEXT: Provider was unable to determine a response for this query. REVIEWER QUERY TEXT: Asthma Specificity and Type Asthma is documented in the Medical Record. Please specify the type and severity of asthma Such as: -- Mild intermittent -- Mild persistent -- Moderate persistent -- Severe persistent -- Exercise induced bronchospasm -- Cough variant asthma -- Other, please specify The patient's Clinical Indicators include: 58 year old female with PMH of asthma presents to the ED for evaluation of shortness of breath unreli eved by at home nebulizer treatment associated with cough productive of yellow sputum and intermitten t hot flashes / chills since 0130 this morning. Patient notes her last asthma exacerbation was one ye ar ago. Rx: Duonebs, Solumedrol, Zithromax, O2 Query created by: Iliana Quispe on 06/18/2018 7:37 AM Electronically signed by: Ismael Emanuel MD 06/19/2018 12:45 PM
--- NOTE | 2018-06-19 13:30 | CP.PCM.PN ---
Subjective - Date & Time of Evaluation Date of Evaluation: 06/19/18 Time of Evaluation: 14:20 - Subjective Subjective: F/U Asthma. SOB on exertion, some wheezing, refusing O2 NC. Objective - Vital Signs/Intake and Output Vital Signs (last 24 hours): Temp Pulse Resp BP Pulse Ox 97.3 F L 93 H 20 134/82 93 L 06/19/18 12:30 06/19/18 12:30 06/19/18 12:30 06/19/18 12:30 06/19/18 12:30 Intake and Output: 06/19/18 06/19/18 06:59 18:59 Intake Total 250 Balance 250 - Medications Medications: Current Medications Albuterol/Ipratropium (Duoneb 3 Mg/0.5 Mg (3 Ml) Ud) 3 ml INH RQ4 [facility] Last Admin: 06/19/18 12:07 Dose: 3 ml Baclofen (Lioresal) 10 mg PO HS [facility] Last Admin: 06/18/18 21:16 Dose: 10 mg Cholecalciferol (Vitamin D) 1,000 intlu PO DAILY [facility] Last Admin: 06/19/18 10:12 Dose: 1,000 intlu Cyanocobalamin (Vitamin B12 1000 Mcg Tab) 1,000 mcg PO DAILY [facility] Last Admin: 06/19/18 10:12 Dose: 1,000 mcg Diltiazem HCl (Cardizem Cd) 120 mg PO DAILY [facility] Last Admin: 06/19/18 10:13 Dose: 120 mg Guaifenesin/Dextromethorphan (Mucinex-Dm 600-30 Mg) 1 tab PO BID [facility] Last Admin: 06/19/18 10:02 Dose: 1 tab Home Med (Diclofenac Sodium [Voltaren]) 1 % TOP BID [facility] Azithromycin 500 mg/ Sodium (Chloride) 250 mls @ 250 mls/hr IVPB DAILY [facility]; Protocol Last Admin: 06/19/18 10:14 Dose: 250 mls/hr Methylprednisolone (Solu-Medrol) 40 mg IVP Q6H [facility] Last Admin: 06/19/18 10:02 Dose: 40 mg Pantoprazole Sodium (Protonix Ec Tab) 40 mg PO DAILY [facility] Last Admin: 06/19/18 10:02 Dose: Not Given Promethazine HCl/Dextromethorphan (Phenergan Dm Syrup) 5 ml PO Q6 PRN PRN Reason: Cough Last Admin: 06/18/18 12:10 Dose: 5 ml Tizanidine HCl (Zanaflex) 4 mg PO TID PRN PRN Reason: spasm - Labs Labs: 06/18/18 05:50 06/18/18 05:50 - Constitutional Appears: No Acute Distress - Head Exam Head Exam: NORMAL INSPECTION - Eye Exam Eye Exam: PERRL - ENT Exam Additional comments: Hard of hearin on R, less nasal congestion. - Neck Exam Neck Exam: Normal Inspection - Respiratory Exam Respiratory Exam: Wheezes - Cardiovascular Exam Cardiovascular Exam: REGULAR RHYTHM - GI/Abdominal Exam GI & Abdominal Exam: Soft, Normal Bowel Sounds - Extremities Exam Extremities Exam: Normal Inspection - Neurological Exam Neurological Exam: Alert, Oriented x3. absent: Motor Sensory Deficit - Psychiatric Exam Psychiatric exam: Normal Mood - Skin Skin Exam: Warm Assessment and Plan (1) Asthma exacerbation Status: Acute (2) HTN (hypertension) Status: Chronic - Assessment and Plan (Free Text) Plan: Pt on Zithromax, continue Duoneb, Solu-Medrol, Mucinex.
[2018-06-19] MEDS: Benzocaine/Menthol (Cepacol) Lozenge PO PRN (17:45)
[2018-06-19 18:32] LABS: HEMOGLOBIN 13.4 g/dL (12.0-16.0); MEAN CELL VOLUME 89.5 fl (81.0-99.0); MEAN CORPUSCULAR HEMOGLOBIN 30.4 pg (27.0-31.0); RBC 4.42 Mil/uL (3.80-5.20); RED CELL DISTRIBUTION WIDTH 13.4 % (11.5-14.5); WHITE BLOOD COUNT 12.5 K/uL (4.8-10.8)
[2018-06-20] MEDS: Albuterol-Ipratrop 3 mg / 0.5 (3 ml) UD INH SCH ×7 (04:52→23:18)
[2018-06-20] MEDS: MethylPREDNISolone 40 mg Vial IVP SCH ×2 (04:55→08:59)
[2018-06-20] MEDS: guaiFENesin-DM 600-30 mg ER Tab PO SCH ×2 (08:56→18:04)
[2018-06-20] MEDS: Pantoprazole 40 mg EC Tab PO SCH (08:56)
[2018-06-20] MEDS: diltiaZEM 120 mg/24 Hours CD Cap PO SCH (08:56)
[2018-06-20] MEDS: Cholecalciferol 1,000 INTLU TAB PO SCH (08:58)
[2018-06-20] MEDS ORDERED: MethylPREDNISolone Depo 40 mg/ml Inj IM ONE (13:16)
--- NOTE | 2018-06-20 16:36 | CP.PCM.PN ---
Subjective - Date & Time of Evaluation Date of Evaluation: 06/20/18 Time of Evaluation: 12:40 - Subjective Subjective: F/U Asthma SOB and chest congestion mildly improvement, Pt c/o of L-S pain. Objective - Vital Signs/Intake and Output Vital Signs (last 24 hours): Temp Pulse Resp BP Pulse Ox 98.3 F 83 18 138/72 92 L 06/20/18 16:05 06/20/18 16:05 06/20/18 16:05 06/20/18 16:05 06/20/18 16:05 - Medications Medications: Current Medications Albuterol/Ipratropium (Duoneb 3 Mg/0.5 Mg (3 Ml) Ud) 3 ml INH RQ4 [facility] Last Admin: 06/20/18 15:55 Dose: 3 ml Azithromycin (Zithromax) 500 mg PO DAILY [facility]; Protocol Last Admin: 06/20/18 13:29 Dose: 500 mg Baclofen (Lioresal) 10 mg PO HS [facility] Last Admin: 06/19/18 21:42 Dose: 10 mg Benzocaine/Menthol (Cepacol Sore Throat) 1 ale PO Q3 PRN PRN Reason: Sore Throat Last Admin: 06/19/18 17:45 Dose: 1 ale Cholecalciferol (Vitamin D) 1,000 intlu PO DAILY [facility] Last Admin: 06/20/18 08:58 Dose: 1,000 intlu Cyanocobalamin (Vitamin B12 1000 Mcg Tab) 1,000 mcg PO DAILY [facility] Last Admin: 06/20/18 08:58 Dose: 1,000 mcg Diltiazem HCl (Cardizem Cd) 120 mg PO DAILY [facility] Last Admin: 06/20/18 08:56 Dose: 120 mg Guaifenesin/Dextromethorphan (Mucinex-Dm 600-30 Mg) 1 tab PO BID [facility] Last Admin: 06/20/18 08:56 Dose: 1 tab Azithromycin 500 mg/ Sodium (Chloride) 250 mls @ 250 mls/hr IVPB DAILY [facility]; Protocol Last Admin: 06/19/18 10:14 Dose: 250 mls/hr Methylprednisolone (Solu-Medrol) 40 mg IVP Q6H [facility] Last Admin: 06/20/18 08:59 Dose: 40 mg Pantoprazole Sodium (Protonix Ec Tab) 40 mg PO DAILY [facility] Last Admin: 06/20/18 08:56 Dose: Not Given Prednisone (Prednisone Tab) 20 mg PO Q8 [facility] Promethazine HCl/Dextromethorphan (Phenergan Dm Syrup) 5 ml PO Q6 PRN PRN Reason: Cough Last Admin: 06/18/18 12:10 Dose: 5 ml Fluticasone/Salmeterol (Advair Diskus 500/50) 1 puff IH Q12 [facility] Tizanidine HCl (Zanaflex) 4 mg PO TID PRN PRN Reason: spasm Last Admin: 06/20/18 09:09 Dose: 4 mg - Labs Labs: 06/19/18 17:03 06/18/18 05:50 - Constitutional Appears: No Acute Distress - Head Exam Head Exam: NORMAL INSPECTION - Eye Exam Eye Exam: PERRL - ENT Exam ENT Exam: Normal Exam - Neck Exam Neck Exam: Normal Inspection - Respiratory Exam Respiratory Exam: Wheezes (scatered b/l) - Cardiovascular Exam Cardiovascular Exam: REGULAR RHYTHM - GI/Abdominal Exam GI & Abdominal Exam: Soft, Normal Bowel Sounds - Extremities Exam Extremities Exam: Normal Inspection - Back Exam Back Exam: tenderness (L-S) - Neurological Exam Neurological Exam: Alert, Oriented x3. absent: Motor Sensory Deficit - Psychiatric Exam Psychiatric exam: Normal Mood - Skin Skin Exam: Warm Assessment and Plan (1) Asthma exacerbation Status: Acute (2) HTN (hypertension) Status: Chronic - Assessment and Plan (Free Text) Plan: Pt with no IV access, will give Prednisone po, add Advair , continue Zithromax , Tylenol and rest of Tx.
[2018-06-20] MEDS ORDERED: Benzocaine/Menthol (Cepacol) Lozenge PO PRN (16:48)
[2018-06-20] MEDS: Benzocaine/Menthol (Cepacol) Lozenge PO PRN (18:07)
[2018-06-20] MEDS: Fluticasone-Salmeterol 500-50mcg Diskus IH SCH (21:35)
[2018-06-21] MEDS: Albuterol-Ipratrop 3 mg / 0.5 (3 ml) UD INH SCH ×5 (04:57→19:33)
[2018-06-21] MEDS: Fluticasone-Salmeterol 500-50mcg Diskus IH SCH ×2 (08:49→21:13)
[2018-06-21] MEDS: Alum-Mag Hydrox-Simethicone Susp (30 mL) PO SCH ×4 (08:50→17:55)
[2018-06-21] MEDS: Cholecalciferol 1,000 INTLU TAB PO SCH (08:50)
[2018-06-21] MEDS: guaiFENesin-DM 600-30 mg ER Tab PO SCH ×2 (08:50→17:56)
[2018-06-21] MEDS: Pantoprazole 40 mg EC Tab PO SCH ×2 (08:51→08:56)
[2018-06-21] MEDS: diltiaZEM 120 mg/24 Hours CD Cap PO SCH (08:51)
--- NOTE | 2018-06-21 16:10 | CP.PCM.PN ---
Subjective - Subjective Subjective: breathing better, less chest congestion, occasional dry cough, allergic reaction yesterday with skin rash and itching, Pt had Benadryl with improvement, skin rash now U/E and anterior Chest with itching Objective - Vital Signs/Intake and Output Vital Signs (last 24 hours): Temp Pulse Resp BP Pulse Ox 97.5 F L 86 18 146/72 92 L 06/21/18 15:56 06/21/18 15:56 06/21/18 15:56 06/21/18 15:56 06/21/18 15:56 - Medications Medications: Current Medications Acetaminophen (Tylenol 325mg Tab) 650 mg PO Q4 PRN PRN Reason: Pain, moderate (4-7) Last Admin: 06/20/18 20:23 Dose: 650 mg Al Hydrox/Mg Hydrox/Simethicone (Maalox Plus 30 Ml) 30 ml PO TID [facility] Last Admin: 06/21/18 12:41 Dose: Not Given Albuterol/Ipratropium (Duoneb 3 Mg/0.5 Mg (3 Ml) Ud) 3 ml INH RQ4 [facility] Last Admin: 06/21/18 15:40 Dose: 3 ml Azithromycin (Zithromax) 500 mg PO DAILY [facility]; Protocol Last Admin: 06/21/18 08:50 Dose: 500 mg Baclofen (Lioresal) 10 mg PO HS [facility] Last Admin: 06/20/18 21:35 Dose: 10 mg Benzocaine/Menthol (Cepacol Sore Throat) 1 ale PO Q3 PRN PRN Reason: Sore Throat Last Admin: 06/20/18 18:07 Dose: 1 ale Cholecalciferol (Vitamin D) 1,000 intlu PO DAILY [facility] Last Admin: 06/21/18 08:50 Dose: 1,000 intlu Cyanocobalamin (Vitamin B12 1000 Mcg Tab) 1,000 mcg PO DAILY [facility] Last Admin: 06/21/18 12:41 Dose: 1,000 mcg Diltiazem HCl (Cardizem Cd) 120 mg PO DAILY [facility] Last Admin: 06/21/18 08:51 Dose: 120 mg Diphenhydramine HCl (Benadryl) 25 mg PO Q8 PRN PRN Reason: Itching / Pruritus Guaifenesin/Dextromethorphan (Mucinex-Dm 600-30 Mg) 1 tab PO BID [facility] Last Admin: 06/21/18 08:50 Dose: 1 tab Azithromycin 500 mg/ Sodium (Chloride) 250 mls @ 250 mls/hr IVPB DAILY [facility]; Protocol Last Admin: 06/19/18 10:14 Dose: 250 mls/hr Methylprednisolone (Solu-Medrol) 40 mg IVP Q6H [facility] Last Admin: 06/20/18 08:59 Dose: 40 mg Pantoprazole Sodium (Protonix Ec Tab) 40 mg PO DAILY [facility] Last Admin: 06/21/18 08:56 Dose: Not Given Prednisone (Prednisone Tab) 20 mg PO Q8 [facility] Last Admin: 06/21/18 08:52 Dose: 20 mg Promethazine HCl/Dextromethorphan (Phenergan Dm Syrup) 5 ml PO Q6 PRN PRN Reason: Cough Last Admin: 06/18/18 12:10 Dose: 5 ml Fluticasone/Salmeterol (Advair Diskus 500/50) 1 puff IH Q12 [facility] Last Admin: 06/21/18 08:49 Dose: 1 puff Tizanidine HCl (Zanaflex) 4 mg PO TID PRN PRN Reason: spasm Last Admin: 06/21/18 08:56 Dose: 4 mg - Labs Labs: 06/19/18 17:03 06/18/18 05:50 - Constitutional Appears: No Acute Distress - Head Exam Head Exam: NORMAL INSPECTION - ENT Exam ENT Exam: Normal Exam - Neck Exam Neck Exam: Normal Inspection - Respiratory Exam Respiratory Exam: Wheezes - Cardiovascular Exam Cardiovascular Exam: REGULAR RHYTHM - GI/Abdominal Exam GI & Abdominal Exam: Soft, Normal Bowel Sounds - Extremities Exam Extremities Exam: Normal Inspection - Back Exam Back Exam: NORMAL INSPECTION - Neurological Exam Neurological Exam: Alert, CN II-XII Intact, Oriented x3. absent: Motor Sensory Deficit - Psychiatric Exam Psychiatric exam: Normal Affect, Normal Mood - Skin Skin Exam: Rash (U/E and anterior chest) Assessment and Plan (1) Asthma exacerbation Status: Acute (2) HTN (hypertension) Status: Chronic (3) Rash due to allergy Status: Acute - Assessment and Plan (Free Text) Plan: Allergic rash unclear etiology, Pt with multiple allergies, to have Benadryl, continue Prednisone, DuoNeb and rest of Tx
[2018-06-22] MEDS: Albuterol-Ipratrop 3 mg / 0.5 (3 ml) UD INH SCH ×4 (00:57→11:06)
[2018-06-22 04:38] VITALS: RESP 18
[2018-06-22] MEDS: Alum-Mag Hydrox-Simethicone Susp (30 mL) PO SCH (09:06)
[2018-06-22] MEDS: diltiaZEM 120 mg/24 Hours CD Cap PO SCH (09:06)
[2018-06-22] MEDS: Fluticasone-Salmeterol 500-50mcg Diskus IH SCH (09:07)
[2018-06-22] MEDS: guaiFENesin-DM 600-30 mg ER Tab PO SCH (09:07)
[2018-06-22] MEDS: Cholecalciferol 1,000 INTLU TAB PO SCH (09:08)
[2018-06-22] MEDS: Pantoprazole 40 mg EC Tab PO SCH (09:08)
--- NOTE | 2018-06-22 11:53 | CP.PCM.PN ---
Subjective - Date & Time of Evaluation Date of Evaluation: 06/22/18 Time of Evaluation: 11:51 - Subjective Subjective: Vinayak Pressley, PGY-1, Cardiology Progress Note for Dr. Barakat Patient was seen and evaluated at bedside. Patient had no acute overnight events. Patient reports significant improvement of breathing and denies chest tightness of wheezing. Objective - Vital Signs/Intake and Output Vital Signs (last 24 hours): Temp Pulse Resp BP Pulse Ox 97.5 F L 75 18 103/59 L 96 06/22/18 07:55 06/22/18 09:06 06/22/18 07:55 06/22/18 09:06 06/22/18 07:55 - Medications Medications: Current Medications Acetaminophen (Tylenol 325mg Tab) 650 mg PO Q4 PRN PRN Reason: Pain, moderate (4-7) Last Admin: 06/20/18 20:23 Dose: 650 mg Al Hydrox/Mg Hydrox/Simethicone (Maalox Plus 30 Ml) 30 ml PO TID [facility] Last Admin: 06/22/18 09:06 Dose: Not Given Albuterol/Ipratropium (Duoneb 3 Mg/0.5 Mg (3 Ml) Ud) 3 ml INH RQ4 [facility] Last Admin: 06/22/18 07:30 Dose: 3 ml Azithromycin (Zithromax) 500 mg PO DAILY [facility]; Protocol Last Admin: 06/22/18 09:06 Dose: 500 mg Baclofen (Lioresal) 10 mg PO HS [facility] Last Admin: 06/21/18 21:13 Dose: 10 mg Benzocaine/Menthol (Cepacol Sore Throat) 1 ale PO Q3 PRN PRN Reason: Sore Throat Last Admin: 06/20/18 18:07 Dose: 1 ale Cholecalciferol (Vitamin D) 1,000 intlu PO DAILY [facility] Last Admin: 06/22/18 09:08 Dose: 1,000 intlu Cyanocobalamin (Vitamin B12 1000 Mcg Tab) 1,000 mcg PO DAILY [facility] Last Admin: 06/22/18 09:07 Dose: 1,000 mcg Diltiazem HCl (Cardizem Cd) 120 mg PO DAILY [facility] Last Admin: 06/22/18 09:06 Dose: 120 mg Diphenhydramine HCl (Benadryl) 25 mg PO Q8 PRN PRN Reason: Itching / Pruritus Guaifenesin/Dextromethorphan (Mucinex-Dm 600-30 Mg) 1 tab PO BID [facility] Last Admin: 06/22/18 09:07 Dose: 1 tab Azithromycin 500 mg/ Sodium (Chloride) 250 mls @ 250 mls/hr IVPB DAILY [facility]; Protocol Last Admin: 06/19/18 10:14 Dose: 250 mls/hr Methylprednisolone (Solu-Medrol) 40 mg IVP Q6H [facility] Last Admin: 06/20/18 08:59 Dose: 40 mg Pantoprazole Sodium (Protonix Ec Tab) 40 mg PO DAILY [facility] Last Admin: 06/22/18 09:08 Dose: 40 mg Prednisone (Prednisone Tab) 20 mg PO Q8 [facility] Last Admin: 06/22/18 09:07 Dose: 20 mg Promethazine HCl/Dextromethorphan (Phenergan Dm Syrup) 5 ml PO Q6 PRN PRN Reason: Cough Last Admin: 06/18/18 12:10 Dose: 5 ml Fluticasone/Salmeterol (Advair Diskus 500/50) 1 puff IH Q12 [facility] Last Admin: 06/22/18 09:07 Dose: Not Given Tizanidine HCl (Zanaflex) 4 mg PO TID PRN PRN Reason: spasm Last Admin: 06/22/18 09:07 Dose: 4 mg - Labs Labs: 06/19/18 17:03 06/18/18 05:50 - Constitutional Appears: Well, Non-toxic, No Acute Distress - Head Exam Head Exam: ATRAUMATIC, NORMAL INSPECTION, NORMOCEPHALIC - Eye Exam Eye Exam: EOMI, PERRL - ENT Exam ENT Exam: Mucous Membranes Moist - Respiratory Exam Respiratory Exam: Wheezes - Cardiovascular Exam Cardiovascular Exam: Diastolic murmur, REGULAR RHYTHM, RRR, +S1, +S2 - GI/Abdominal Exam GI & Abdominal Exam: Normal Bowel Sounds, Soft. absent: Tenderness - Extremities Exam Extremities exam: Positive for: full ROM, normal inspection. Negative for: pedal edema - Neurological Exam Neurological exam: Alert, CN II-XII Intact, Oriented x3 - Psychiatric Exam Psychiatric exam: Normal Affect, Normal Mood - Skin Skin Exam: Dry, Intact Assessment and Plan (1) Cardiac anomaly Assessment & Plan: Echocardiogram: LVEF 55-60%, RVSP of 26, grade I abnormal relaxation, mild TR Current symptoms unlikely due to cardiac cause. EKG: sinus tachycarda with HR: 107 Continue with cardizem Status: Acute (2) Asthma exacerbation Assessment & Plan: CXR shows no effusions Symptoms likely 2/2 to asthma exacerbation Continue with prednisone, duonebs, and azithromycin. Status: Acute
[2018-06-22 12:22] VITALS: BP 102/63; PULSE 67; TEMP 97.6; O2SAT 98
--- NOTE | 2018-06-22 14:21 | CP.PCM.DIS ---
Provider - Provider Date of Admission: 06/17/18 19:00 Attending physician: Ismael Emanuel MD Consults: 06/18/18 22:14 Cardiology Consult Routine Comment: Consulting Provider: Ramón Barakat Consulting Physician: Ramón Barakat Reason for Consult: As per MD orders Diagnosis - Discharge Diagnosis (1) Asthma exacerbation Status: Acute Priority: High (2) HTN (hypertension) Status: Chronic Priority: Medium (3) Rash due to allergy Status: Acute Hospital Course - Lab Results Lab Results: Micro Results 06/17/18 18:10 Blood Blood Culture - Preliminary NO GROWTH AFTER 4 DAYS 06/17/18 15:50 Blood Blood Culture - Preliminary NO GROWTH AFTER 4 DAYS Most Recent Lab Values WBC 12.5 K/uL (4.8-10.8) H D 06/19/18 17:03 RBC 4.42 Mil/uL (3.80-5.20) 06/19/18 17:03 Hgb 13.4 g/dL (12.0-16.0) 06/19/18 17:03 Hct 39.5 % (34.0-47.0) 06/19/18 17:03 MCV 89.5 fl (81.0-99.0) 06/19/18 17:03 MCH 30.4 pg (27.0-31.0) 06/19/18 17:03 MCHC 34.0 g/dL (33.0-37.0) 06/19/18 17:03 RDW 13.4 % (11.5-14.5) 06/19/18 17:03 Plt Count 282 K/uL (130-400) 06/19/18 17:03 MPV 8.3 fl (7.2-11.7) 06/17/18 17:58 Neut % (Auto) 66.8 % (50.0-75.0) 06/17/18 17:58 Lymph % (Auto) 18.6 % (20.0-40.0) L 06/17/18 17:58 [place] % (Auto) 13.9 % (0.0-10.0) H 06/17/18 17:58 Eos % (Auto) 0.5 % (0.0-4.0) 06/17/18 17:58 Baso % (Auto) 0.2 % (0.0-2.0) 06/17/18 17:58 Neut # (Auto) 3.8 K/uL (1.8-7.0) 06/17/18 17:58 Lymph # (Auto) 1.1 K/uL (1.0-4.3) 06/17/18 17:58 [place] # (Auto) 0.8 K/uL (0.0-0.8) 06/17/18 17:58 Eos # (Auto) 0.0 K/uL (0.0-0.7) 06/17/18 17:58 Baso # (Auto) 0.0 K/uL (0.0-0.2) 06/17/18 17:58 Sodium 139 mmol/l (132-148) 06/18/18 05:50 Potassium 4.2 MMOL/L (3.6-5.0) 06/18/18 05:50 Chloride 101 mmol/L (98-107) 06/18/18 05:50 Carbon Dioxide 28 mmol/L (22-30) 06/18/18 05:50 Anion Gap 14 (10-20) 06/18/18 05:50 BUN 15 mg/dl (7-17) 06/18/18 05:50 Creatinine 0.7 mg/dl (0.7-1.2) 06/18/18 05:50 Est GFR ( Amer) > 60 06/18/18 05:50 Est GFR (Non-Af Amer) > 60 06/18/18 05:50 Random Glucose 144 mg/dL (65-105) H 06/18/18 05:50 Calcium 9.7 mg/dL (8.4-10.2) 06/18/18 05:50 Total Bilirubin 0.3 mg/dl (0.2-1.3) 06/18/18 05:50 AST 26 U/L (14-36) 06/18/18 05:50 ALT 24 U/L (9-52) 06/18/18 05:50 Alkaline Phosphatase 74 U/L (38-126) 06/18/18 05:50 Total Protein 7.8 G/DL (6.3-8.2) 06/18/18 05:50 Albumin 4.2 g/dL (3.5-5.0) 06/18/18 05:50 Globulin 3.6 gm/dL (2.2-3.9) 06/18/18 05:50 Albumin/Globulin Ratio 1.2 (1.0-2.1) 06/18/18 05:50 Triglycerides 62 mg/DL (0-149) 06/18/18 05:50 Cholesterol 196 mg/dL (0-199) 06/18/18 05:50 LDL Cholesterol Direct 78 mg/dL (0-129) 06/18/18 05:50 HDL Cholesterol 80 MG/DL (30-70) H 06/18/18 05:50 Thyroxine (T4) 7.00 ug/dl (5.5-11.0) 06/18/18 05:50 TSH 3rd Generation 0.18 mIU/ML (0.46-4.68) L 06/18/18 05:50 Urine Color Yellow (YELLOW) 06/18/18 11:16 Urine Clarity Clear (Clear) 06/18/18 11:16 Urine pH 5.0 (5.0-8.0) 06/18/18 11:16 Ur Specific [place] 1.020 (1.003-1.030) 06/18/18 11:16 Urine Protein Negative mg/dL (NEGATIVE) 06/18/18 11:16 Urine Glucose (UA) Neg mg/dL (NEGATIVE) 06/18/18 11:16 Urine Ketones Negative mg/dL (NEGATIVE) 06/18/18 11:16 Urine Blood Negative (NEGATIVE) 06/18/18 11:16 Urine Nitrate Negative (NEGATIVE) 06/18/18 11:16 Urine Bilirubin Negative (NEGATIVE) 06/18/18 11:16 Urine Urobilinogen 0.2-1.0 mg/dL (0.2-1.0) 06/18/18 11:16 Ur Leukocyte Esterase Neg [place]/uL (Negative) 06/18/18 11:16 Urine RBC (Auto) < 1 /hpf (0-3) 06/18/18 11:16 Urine Microscopic WBC 3 /hpf (0-5) 06/18/18 11:16 Ur Squamous Epith Cells < 1 /hpf (0-5) 06/18/18 11:16 Urine Bacteria Rare (<OCC) 06/18/18 11:16 Hyaline Casts 0-2 /hpf (0-2) 06/18/18 11:16 Discharge Exam - Head Exam Head Exam: NORMAL INSPECTION Discharge Plan - Discharge Medications Prescriptions: Fluticasone/Salmeterol 500/50 [Advair Diskus 500/50] 1 puff IH Q12 #60 puff guaiFENesin/Dextromethorphan [Mucinex-DM 600-30 mg] 1 tab PO BID #14 tab Promethazine DM [Phenergan DM Syrup] 5 ml PO Q6 PRN #28 cup PRN Reason: Cough predniSONE [predniSONE Tab] 5 mg PO DAILY #28 tab Pantoprazole [Protonix EC Tab] 40 mg PO DAILY #14 ect Azithromycin [Zithromax] 500 mg PO DAILY #5 tab - Follow Up Plan Condition: STABLE Disposition: HOME/ ROUTINE Instructions: Asthma, Adult (DC) Additional Instructions: follow up with pmd in 1 week Referrals: Donnie Ribeiro MD [Medical Doctor] - Ismael Emanuel MD [Staff Provider] -
== END 2018-06-22 15:12 | disposition home or self-care (01) | DRG 203 ==
LOC: H.ER 16:32 → H.ERHOLD 19:00 → H.TEL 06-18 00:34
PROVIDERS: ADMIT Internal Medicine Pulmonary Disease; ATTEND Internal Medicine Pulmonary Disease
DX: J45.901 Unspecified asthma with (acute) exacerbation (principal); I10 Essential (primary) hypertension; I45.10 Unspecified right bundle-branch block; R00.0 Tachycardia, unspecified; R21 Rash and other nonspecific skin eruption; T78.40XA Allergy, unspecified, initial encounter; Z88.6 Allergy status to analgesic agent; Z88.0 Allergy status to penicillin; Z88.8 Allergy status to other drugs, medicaments and biological substances; X58.XXXA Exposure to other specified factors, initial encounter